=== PATIENT | female | born 1960 | race Two or more races ===

== ENCOUNTER 2022-09-02 08:03 | Emergency (ER) | payer SELFPAY ==
[2022-09-02] MEDS ORDERED: Tetracaine 0.5% PF 4 ML BOT ONE (09:22)
[2022-09-02] MEDS ORDERED: Fluorescein Opthalmic Strip ONE (09:22)
[2022-09-02] MEDS ORDERED: Erythromycin Base 0.5% Oint 1 GM TUBE ONE (09:35)
== END 2022-09-02 09:38 | disposition home or self-care (01) ==
LOC: NAV ERS 08:03
DX: S05.01XA Injury of conjunctiva and corneal abrasion without foreign body, right eye, initial encounter (principal); W25.XXXA Contact with sharp glass, initial encounter
CPT/HCPCS: 99283